=== PATIENT | female | born 1990 | race American Indian/Alaskan Native ===

== ENCOUNTER 2016-11-18 10:27 | Emergency (ER) | payer SELFPAY ==
[2016-11-18 11:24] LABS: Basophils % (Auto) 0.3 % (0.0-1.8); Eosinophils % (Auto) 0.5 % (0.0-4.3); Hematocrit 36.8 % (30.3-42.9); Mean Corpuscular HGB Conc 33 % (30-34); Mean Corpuscular Hemoglobin 30 pg (28-32); Mean Corpuscular Volume 92 fl (79-97); Platelet Count 288 K/mm3 (140-440); Red Blood Count 3.99 M/mm3 (3.65-5.03); Red Cell Distribution Width 15.4 % (13.2-15.2); White Blood Count 9.5 K/mm3 (4.5-11.0)
[2016-11-18 11:35] LABS: Anion Gap 19 mmol/L; BUN/Creatinine Ratio 13; Blood Urea Nitrogen 9 mg/dL (7-17); Calcium 9.2 mg/dL (8.4-10.2); Carbon Dioxide 26 mmol/L (22-30); Chloride 98.5 mmol/L (98-107); Glucose 102 mg/dL (65-100); Sodium 139 mmol/L (137-145)
[2016-11-19] MEDS ORDERED: NACL 0.9% 1000 ML 1,000 ML IV ONE (02:32)
--- NOTE | 2016-11-19 02:53 | Emergency Department Report ---
ED General Adult HPI - General Chief complaint: Arrhythmia/Palpitations Stated complaint: HEART FLUTTER,SOB Time Seen by Provider: 11/19/16 02:31 Source: patient Mode of arrival: Ambulatory Limitations: No Limitations - History of Present Illness Initial comments: Pt is a 26-year-old female no significant past medical history who presents with heart palpitations and flutter. Patient states that she's been slightly short of breath for the last 5 days and she's had some weakness and lightheadedness. She states that she feels like her heart is beating from her chest. Patient's symptoms are moderate and nothing that she knows makes it better or worse. Patient denied having any chest pain or any headache. She does state that if she gets up too fast she gets lightheaded and her heart starts to be more fast. Patient regularly drinks caffeine. - Related Data Previous Rx's Medication Instructions Recorded Last Taken Type Acetaminophen/Codeine 1 tab PO Q6H PRN #10 tab 03/16/14 Unknown Rx [Acetaminophen-Codeine #3 TAB] Indomethacin 50 mg PO Q8H #21 capsule 03/16/14 Unknown Rx Prednisone [Prednisone 5 mg (6-Day 5 mg PO .TAPER #1 tab.ds.pk 03/16/14 Unknown Rx Pack, 21 Tabs)] Meclizine [Antivert] 25 mg PO TID PRN #30 tablet 11/19/16 Unknown Rx Allergies Allergy/AdvReac Type Severity Reaction Status Date / Time No Known Allergies Allergy Unverified 03/15/14 22:53 ED Review of Systems ROS: Stated complaint: HEART FLUTTER,SOB Other details as noted in HPI Constitutional: denies: chills, fever Eyes: denies: eye pain, eye discharge, vision change ENT: denies: ear pain, throat pain Respiratory: denies: cough, shortness of breath, wheezing Cardiovascular: palpitations. denies: chest pain Endocrine: no symptoms reported Gastrointestinal: denies: abdominal pain, nausea, diarrhea Genitourinary: denies: urgency, dysuria, discharge Musculoskeletal: denies: back pain, joint swelling, arthralgia Skin: denies: rash, lesions Neurological: denies: headache, weakness, paresthesias Psychiatric: denies: anxiety, depression Hematological/Lymphatic: denies: easy bleeding, easy bruising ED Past Medical Hx - Past Medical History Previous Medical History?: Yes Additional medical history: x5 - Surgical History Past Surgical History?: Yes Additional Surgical History: c-sectionx5 - Social History Smoking Status: Never Smoker Substance Use Type: None - Medications Home Medications: Home Medications Medication Instructions Recorded Confirmed Last Taken Type Acetaminophen/Codeine 1 tab PO Q6H PRN #10 tab 03/16/14 Unknown Rx [Acetaminophen-Codeine #3 TAB] Indomethacin 50 mg PO Q8H #21 capsule 03/16/14 Unknown Rx Prednisone [Prednisone 5 mg (6-Day 5 mg PO .TAPER #1 tab.ds.pk 03/16/14 Unknown Rx Pack, 21 Tabs)] Meclizine [Antivert] 25 mg PO TID PRN #30 tablet 11/19/16 Unknown Rx ED Physical Exam - General Limitations: No Limitations General appearance: alert, in no apparent distress - Head Head exam: Present: atraumatic, normocephalic - Eye Eye exam: Present: normal appearance - ENT ENT exam: Present: mucous membranes moist - Neck Neck exam: Present: normal inspection - Respiratory Respiratory exam: Present: normal lung sounds bilaterally. Absent: respiratory distress - Cardiovascular Cardiovascular Exam: Present: regular rate, normal rhythm. Absent: systolic murmur, diastolic murmur, rubs, gallop - GI/Abdominal GI/Abdominal exam: Present: soft, normal bowel sounds - Extremities Exam Extremities exam: Present: normal inspection - Back Exam Back exam: Present: normal inspection - Neurological Exam Neurological exam: Present: alert, oriented X3 - Psychiatric Psychiatric exam: Present: normal affect, normal mood - Skin Skin exam: Present: warm, dry, intact, normal color. Absent: rash ED Course Vital Signs 11/18/16 11/18/16 11/19/16 10:51 22:31 01:58 Temperature 98.4 F 98.1 F 98.4 F Pulse Rate 87 101 H 98 H Respiratory 18 18 18 Rate Blood Pressure 131/86 131/83 Blood Pressure 120/75 [Left] O2 Sat by Pulse 100 100 98 Oximetry 11/19/16 02:50 Temperature Pulse Rate 82 Respiratory 18 Rate Blood Pressure Blood Pressure 116/73 [Left] O2 Sat by Pulse 98 Oximetry ED Medical Decision Making - Lab Data Result diagrams: 11/18/16 11:06 11/18/16 11:06 Lab Results 11/18/16 11/18/16 11/18/16 Range/Units 11:06 11:06 11:06 WBC 9.5 (4.5-11.0) K/mm3 RBC 3.99 (3.65-5.03) M/mm3 Hgb 12.0 (10.1-14.3) gm/dl Hct 36.8 (30.3-42.9) % MCV 92 (79-97) fl MCH 30 (28-32) pg MCHC 33 (30-34) % RDW 15.4 H (13.2-15.2) % Plt Count 288 (140-440) K/mm3 Lymph % (Auto) 24.4 (13.4-35.0) % [place] % (Auto) 6.3 (0.0-7.3) % Eos % (Auto) 0.5 (0.0-4.3) % Baso % (Auto) 0.3 (0.0-1.8) % Lymph # 2.3 (1.2-5.4) K/mm3 [place] # 0.6 (0.0-0.8) K/mm3 Eos # 0.0 (0.0-0.4) K/mm3 Baso # 0.0 (0.0-0.1) K/mm3 Seg Neutrophils % 68.5 (40.0-70.0) % Seg Neutrophils # 6.5 (1.8-7.7) K/mm3 Sodium 139 (137-145) mmol/L Potassium 4.0 (3.6-5.0) mmol/L Chloride 98.5 (98-107) mmol/L Carbon Dioxide 26 (22-30) mmol/L Anion Gap 19 mmol/L BUN 9 (7-17) mg/dL Creatinine 0.7 (0.7-1.2) mg/dL Estimated GFR > 60 ml/min BUN/Creatinine Ratio 13 % Glucose 102 H (65-100) mg/dL Calcium 9.2 (8.4-10.2) mg/dL Troponin T < 0.010 (0.00-0.029) ng/mL TSH 1.950 (0.270-4.200) mlU/mL 11/18/16 11/18/16 Range/Units 13:48 16:29 WBC (4.5-11.0) K/mm3 RBC (3.65-5.03) M/mm3 Hgb (10.1-14.3) gm/dl Hct (30.3-42.9) % MCV (79-97) fl MCH (28-32) pg MCHC (30-34) % RDW (13.2-15.2) % Plt Count (140-440) K/mm3 Lymph % (Auto) (13.4-35.0) % [place] % (Auto) (0.0-7.3) % Eos % (Auto) (0.0-4.3) % Baso % (Auto) (0.0-1.8) % Lymph # (1.2-5.4) K/mm3 [place] # (0.0-0.8) K/mm3 Eos # (0.0-0.4) K/mm3 Baso # (0.0-0.1) K/mm3 Seg Neutrophils % (40.0-70.0) % Seg Neutrophils # (1.8-7.7) K/mm3 Sodium (137-145) mmol/L Potassium (3.6-5.0) mmol/L Chloride (98-107) mmol/L Carbon Dioxide (22-30) mmol/L Anion Gap mmol/L BUN (7-17) mg/dL Creatinine (0.7-1.2) mg/dL Estimated GFR ml/min BUN/Creatinine Ratio % Glucose (65-100) mg/dL Calcium (8.4-10.2) mg/dL Troponin T < 0.010 < 0.010 (0.00-0.029) ng/mL TSH (0.270-4.200) mlU/mL - EKG Data -: EKG Interpreted by Ok - EKG Data 11/19/16 05:15 KG shows normal sinus rhythm no axis deviation no ST segment elevation or T- wave inversion. - Radiology Data Radiology results: report reviewed, image reviewed CT chest angiogram shows no evidence of pulmonary embolism or any acute process in the chest. - Medical Decision Making Chief medical diagnosis: Palpitations secondary to caffeine Differential medical diagnosis: Pulmonary embolism, arrhythmia, hyperkalemia On CBC, CMP, troponin, IV fluids, CT chest angiogram Patient is feeling better after IV fluids patient's labs and imaging findings are unremarkable I will send patient home with follow-up with PCP. Discussed plan with patient she agrees with plan. Critical care attestation.: If time is entered above; I have spent that time in minutes in the direct care of this critically ill patient, excluding procedure time. ED Disposition Clinical Impression: Lightheadedness, Palpitations Disposition: DC- TO HOME OR SELFCARE Is pt being admited?: No Does the pt Need Aspirin: No Condition: Stable Instructions: Palpitations (ED) Prescriptions: Meclizine [Antivert] 25 mg PO TID PRN #30 tablet PRN Reason: Vertigo Referrals: RENÉ VINCENT MD [Staff Physician] - 3-5 Days
--- NOTE | 2016-11-19 04:12 | Cat Scan Report ---
FINAL REPORT EXAM: CT ANGIO CHEST HISTORY: tachycardia and palpitations eval for PE TECHNIQUE: A CT angiogram was performed following intravenous injection of iodinated contrast. Rotational MIP sequences were obtained along with 3D reformats in sagittal and coronal projections. FINDINGS: There is no evidence of pulmonary embolus or aortic dissection. The ascending aorta is mildly ectatic measuring 3.3 cm in diameter. The heart size is normal. There is no evidence of pleural effusion or pericardial effusion. The lungs are clear. There is no evidence of adenopathy. At the thoracic inlet inlet the thyroid gland appears normal. In the upper abdomen the adrenal glands appear normal. The skeletal structures are unremarkable. IMPRESSION: No evidence of pulmonary embolus or aortic dissection. No acute process in the chest.
[2016-11-19 05:45] VITALS: BP 99/57
== END 2016-11-19 05:45 | disposition home or self-care (01) ==
LOC: ED 10:27
DX: R00.2 Palpitations (principal); R42 Dizziness and giddiness
CPT/HCPCS: 36415; 71275; 80048; 84443; 84484; 85025; 93005; 93010; 96360; 99284; J7030; Q9967